=== PATIENT | female | born 1955 | race Caucasian/White ===

== ENCOUNTER 2017-10-11 06:41 | Outpatient (CLI) | payer OTHER ==
[~2017-10-11 06:41] MED LIST: ANTIVERT25 M1 PO; COZAAR100 MG; COZAAR100 MG PO; COZAAR25 MG PO; DECADRON P4 MG/ML-1M IH; FLONASE16 GM NS; GLUCOPHAGE XR500 MG; LIPOFLAVOVIT CA1 TAB PO; PRILOSEC20 MG; PRILOSEC40 MG PO; ROWASA 4 G4 GM/60 ML; SYNTHROID100 MCG; SYNTHROID100 MCG PO; SYNTHROID50 MCG PO; SYNTHROID88 MCG; SYNTHROID88 MCG PO; TORADOL60 MG IM; TRAMADOL HCL50 MG PO; TUSSIN CF COUG118 M1 PO; ZANTAC300 MG PO; ZOCOR5 MG PO
== END 2017-10-11 06:49 | disposition home or self-care (01) ==
LOC: LAB 06:41
DX: C53.9 Malignant neoplasm of cervix uteri, unspecified (principal); D50.9 Iron deficiency anemia, unspecified

== ENCOUNTER → 2017-11-12 | Outpatient (CLI) | payer OTHER | END | disposition home or self-care (01) | LOC: PPHC 10:32 | DX: Z76.0 Encounter for issue of repeat prescription (principal) ==

== ENCOUNTER → 2017-11-13 08:05 | Outpatient (CLI) | payer OTHER | END | disposition home or self-care (01) | LOC: LAB 08:05 | DX: C53.9 Malignant neoplasm of cervix uteri, unspecified (principal); D50.9 Iron deficiency anemia, unspecified ==

== ENCOUNTER → 2018-05-03 06:23 | Outpatient (CLI) | payer OTHER | END | disposition home or self-care (01) | LOC: LAB 06:23 | DX: I10 Essential (primary) hypertension (principal); R73.9 Hyperglycemia, unspecified; R53.1 Weakness ==

== ENCOUNTER 2018-07-07 12:28 | Outpatient (CLI) | payer OTHER | END 2018-07-07 12:31 | disposition home or self-care (01) | LOC: SONOGRAMA 12:28 | DX: Z12.31 Encounter for screening mammogram for malignant neoplasm of breast (principal); C53.9 Malignant neoplasm of cervix uteri, unspecified ==

== ENCOUNTER 2018-07-20 06:13 | Outpatient (CLI) | payer OTHER | END 2018-07-20 06:35 | disposition home or self-care (01) | LOC: LAB 06:13 | DX: C53.9 Malignant neoplasm of cervix uteri, unspecified (principal); D50.8 Other iron deficiency anemias ==

== ENCOUNTER 2018-08-22 23:32 | Emergency (ER) | payer OTHER ==
[~2018-08-22] VITALS: Ht 157.5 cm; Wt 81.6 kg
[2018-08-22] MEDS ORDERED: METFORMIN HYDRO25 GM (23:45)
== END 2018-08-23 09:12 | disposition home or self-care (01) ==
LOC: ER 23:32
DX: K29.70 Gastritis, unspecified, without bleeding (principal)

== ENCOUNTER 2018-09-07 12:37 | Emergency (ER) | payer OTHER ==
[~2018-09-07] VITALS: Ht 157.5 cm; Wt 86.2 kg
[~2018-09-07 12:37] MED LIST changes: +METFORMIN HYDRO25 GM
[2018-09-07] MEDS ORDERED: KETO10TA2 PO (14:01)
== END 2018-09-07 14:23 | disposition home or self-care (01) ==
LOC: ER 12:37
DX: M54.5 Low back pain (principal)

== ENCOUNTER → 2018-09-19 06:50 | Outpatient (CLI) | payer OTHER ==
[~2018-09-19 06:50] MED LIST changes: +KETO10TA2 PO
== END | disposition home or self-care (01) ==
LOC: LAB 06:50
DX: E03.8 Other specified hypothyroidism (principal)

== ENCOUNTER 2019-01-16 17:39 | Emergency (ER) | payer OTHER ==
[~2019-01-16] VITALS: Ht 157.5 cm; Wt 85.3 kg
[2019-01-16] MEDS ORDERED: ZANTAC150 M3 (18:24)
== END 2019-01-16 22:18 | disposition home or self-care (01) ==
LOC: ER 17:39
DX: M25.511 Pain in right shoulder (principal)

== ENCOUNTER → 2019-04-06 06:25 | Outpatient (CLI) | payer OTHER ==
[~2019-04-06 06:25] MED LIST changes: +ZANTAC150 M3
== END | disposition home or self-care (01) ==
LOC: LAB 06:25
DX: E03.8 Other specified hypothyroidism (principal); E78.00 Pure hypercholesterolemia, unspecified; E11.65 Type 2 diabetes mellitus with hyperglycemia

== ENCOUNTER 2019-04-24 11:07 | Outpatient (CLI) | payer OTHER | END 2019-04-24 11:09 | disposition home or self-care (01) | LOC: RAD 11:07 | DX: R07.89 Other chest pain (principal); R07.81 Pleurodynia ==

== ENCOUNTER 2019-04-27 06:42 | Outpatient (CLI) | payer OTHER | END 2019-04-27 08:32 | disposition home or self-care (01) | LOC: LAB 06:42 | DX: C53.9 Malignant neoplasm of cervix uteri, unspecified (principal); D50.8 Other iron deficiency anemias ==

== ENCOUNTER → 2019-07-17 | Outpatient (CLI) | payer OTHER | END | disposition home or self-care (01) | LOC: MAMO-SONO 10:15 | DX: N64.4 Mastodynia (principal); Z12.31 Encounter for screening mammogram for malignant neoplasm of breast; Z87.898 Personal history of other specified conditions ==

== ENCOUNTER 2019-08-24 04:43 | Emergency (ER) | payer OTHER ==
[~2019-08-24] VITALS: Ht 157.5 cm; Wt 84.8 kg
[2019-08-24] MEDS ORDERED: KETO10TA2 PO ×2 (06:59→07:00)
== END 2019-08-24 08:40 | disposition home or self-care (01) ==
LOC: ER 04:43
DX: M62.830 Muscle spasm of back (principal)

== ENCOUNTER → 2019-09-25 06:32 | Outpatient (CLI) | payer OTHER | END | disposition home or self-care (01) | LOC: LAB 06:32 | DX: E78.49 Other hyperlipidemia (principal); E03.8 Other specified hypothyroidism; Z00.00 Encounter for general adult medical examination without abnormal findings; E55.9 Vitamin D deficiency, unspecified; E11.9 Type 2 diabetes mellitus without complications; N39.0 Urinary tract infection, site not specified ==

== ENCOUNTER 2020-02-06 07:10 | Emergency (ER) | payer OTHER ==
[~2020-02-06] VITALS: Ht 157.5 cm; Wt 83.9 kg
[2020-02-06] MEDS ORDERED: METFORMIN HCL850 M1 PO (07:29)
[2020-02-06] MEDS ORDERED: LEVAQUIN500 MG PO (13:34)
[2020-02-06] MEDS ORDERED: PEPCID AC20 MG PO (13:34)
[2020-02-06] MEDS ORDERED: KETO10TA2 PO (13:34)
[2020-02-06] MEDS ORDERED: LEVSIN/SL0.125 MG SL (13:34)
== END 2020-02-06 14:11 | disposition home or self-care (01) ==
LOC: ER 07:10
DX: K80.20 Calculus of gallbladder without cholecystitis without obstruction (principal)

== ENCOUNTER 2020-08-01 06:14 | Outpatient (CLI) | payer OTHER ==
[~2020-08-01 06:14] MED LIST changes: +LEVAQUIN500 MG PO; +LEVSIN/SL0.125 MG SL; +METFORMIN HCL850 M1 PO; +PEPCID AC20 MG PO
== END 2020-08-01 06:23 | disposition home or self-care (01) ==
LOC: LAB 06:14
PROVIDERS: ATTEND Internal Medicine Endocrinology, Diabetes & Metabolism
DX: E78.89 Other lipoprotein metabolism disorders (principal); E06.3 Autoimmune thyroiditis; E11.65 Type 2 diabetes mellitus with hyperglycemia

== ENCOUNTER 2020-09-10 14:23 | Emergency (ER) | payer OTHER ==
[~2020-09-10] VITALS: Ht 157.5 cm; Wt 86.2 kg
== END 2020-09-10 19:20 | disposition home or self-care (01) ==
LOC: ER 14:23
DX: M25.561 Pain in right knee (principal)

== ENCOUNTER 2020-12-06 07:15 | Outpatient (CLI) | payer OTHER | END 2020-12-06 07:22 | disposition home or self-care (01) | LOC: MAMO-SONO 07:15 | PROVIDERS: ATTEND Internal Medicine Endocrinology, Diabetes & Metabolism | DX: K76.0 Fatty (change of) liver, not elsewhere classified (principal); Z01.411 Encounter for gynecological examination (general) (routine) with abnormal findings; Z12.31 Encounter for screening mammogram for malignant neoplasm of breast ==

== ENCOUNTER 2020-12-10 06:33 | Outpatient (CLI) | payer OTHER | END 2020-12-10 06:37 | disposition home or self-care (01) | LOC: LAB 06:33 | PROVIDERS: ATTEND Internal Medicine Endocrinology, Diabetes & Metabolism | DX: E06.3 Autoimmune thyroiditis (principal); E11.65 Type 2 diabetes mellitus with hyperglycemia ==

== ENCOUNTER 2020-12-10 07:11 | Outpatient (CLI) | payer OTHER | END 2020-12-10 07:21 | disposition home or self-care (01) | LOC: MAMO-SONO 07:11 | DX: Z12.31 Encounter for screening mammogram for malignant neoplasm of breast (principal); Z01.419 Encounter for gynecological examination (general) (routine) without abnormal findings ==

== ENCOUNTER 2020-12-24 06:23 | Outpatient (CLI) | payer OTHER | END 2020-12-24 06:26 | disposition home or self-care (01) | LOC: LAB 06:23 | PROVIDERS: ATTEND Internal Medicine Gastroenterology | DX: D50.8 Other iron deficiency anemias (principal); U07.1 COVID-19 ==

== ENCOUNTER 2021-02-07 06:31 | Outpatient (CLI) | payer OTHER | END 2021-02-07 06:32 | disposition home or self-care (01) | LOC: LAB 06:31 | PROVIDERS: ATTEND General Practice | DX: D50.8 Other iron deficiency anemias (principal); N39.0 Urinary tract infection, site not specified; I10 Essential (primary) hypertension; E03.8 Other specified hypothyroidism; E78.2 Mixed hyperlipidemia; E11.69 Type 2 diabetes mellitus with other specified complication; E55.9 Vitamin D deficiency, unspecified; Z12.11 Encounter for screening for malignant neoplasm of colon ==

== ENCOUNTER 2021-02-07 07:43 | Outpatient (CLI) | payer OTHER | END 2021-02-07 07:52 | disposition home or self-care (01) | LOC: RAD 07:43 | PROVIDERS: ATTEND General Practice | DX: J44.9 Chronic obstructive pulmonary disease, unspecified (principal); I70.0 Atherosclerosis of aorta; I51.7 Cardiomegaly ==

== ENCOUNTER → 2021-04-17 06:19 | Outpatient (CLI) | payer OTHER | END | disposition home or self-care (01) | LOC: LAB 06:19 | PROVIDERS: ATTEND Internal Medicine Endocrinology, Diabetes & Metabolism | DX: E11.65 Type 2 diabetes mellitus with hyperglycemia (principal); E78.00 Pure hypercholesterolemia, unspecified; N39.0 Urinary tract infection, site not specified; P12.89 Other birth injuries to scalp ==

== ENCOUNTER 2021-05-14 06:25 | Emergency (ER) | payer OTHER ==
[~2021-05-14] VITALS: Ht 157.5 cm; Wt 113.4 kg
[2021-05-14] MEDS ORDERED: MECLIZINE HCL25 MG PO (13:11)
== END 2021-05-14 13:40 ==
LOC: ER 06:25
DX: R42 Dizziness and giddiness (principal)

== ENCOUNTER 2021-06-13 06:15 | Outpatient (CLI) | payer OTHER ==
[~2021-06-13 06:15] MED LIST changes: +MECLIZINE HCL25 MG PO
== END 2021-06-13 06:16 | disposition home or self-care (01) ==
LOC: LAB 06:15
PROVIDERS: ATTEND Internal Medicine
DX: C53.8 Malignant neoplasm of overlapping sites of cervix uteri (principal); D50.8 Other iron deficiency anemias

== ENCOUNTER 2021-07-23 19:55 | Emergency (ER) | payer OTHER ==
[~2021-07-23] VITALS: Ht 157.5 cm; Wt 86.2 kg
== END 2021-07-23 22:45 | disposition home or self-care (01) ==
LOC: ER 19:55
DX: K29.70 Gastritis, unspecified, without bleeding (principal)

== ENCOUNTER → 2021-08-15 06:31 | Outpatient (CLI) | payer OTHER | END | disposition home or self-care (01) | LOC: LAB 06:31 | PROVIDERS: ATTEND General Practice | DX: D50.8 Other iron deficiency anemias (principal); N39.8 Other specified disorders of urinary system; I11.9 Hypertensive heart disease without heart failure; I10 Essential (primary) hypertension; E11.69 Type 2 diabetes mellitus with other specified complication; E78.2 Mixed hyperlipidemia; Z12.11 Encounter for screening for malignant neoplasm of colon ==

== ENCOUNTER → 2021-09-25 06:38 | Outpatient (CLI) | payer OTHER | END | disposition home or self-care (01) | LOC: LAB 06:38 | DX: Z08 Encounter for follow-up examination after completed treatment for malignant neoplasm (principal); E11.65 Type 2 diabetes mellitus with hyperglycemia; E78.00 Pure hypercholesterolemia, unspecified; E03.8 Other specified hypothyroidism ==

== ENCOUNTER 2021-11-10 06:30 | Outpatient (CLI) | payer OTHER | END 2021-11-10 06:31 | disposition home or self-care (01) | LOC: LAB 06:30 | DX: E03.9 Hypothyroidism, unspecified (principal); N39.0 Urinary tract infection, site not specified; E11.65 Type 2 diabetes mellitus with hyperglycemia; Z12.11 Encounter for screening for malignant neoplasm of colon ==

== ENCOUNTER 2022-01-20 10:57 | Emergency (ER) | payer OTHER ==
[~2022-01-20] VITALS: Ht 157.5 cm; Wt 93.0 kg
[2022-01-20] MEDS ORDERED: ACTOS30 MG PO (11:19)
== END 2022-01-20 21:00 | disposition home or self-care (01) ==
LOC: ER 10:57
DX: K80.20 Calculus of gallbladder without cholecystitis without obstruction (principal); E11.9 Type 2 diabetes mellitus without complications; I10 Essential (primary) hypertension; Z88.8 Allergy status to other drugs, medicaments and biological substances

== ENCOUNTER 2022-01-28 06:07 | Outpatient (CLI) | payer OTHER ==
[~2022-01-28 06:07] MED LIST changes: +ACTOS30 MG PO
== END 2022-01-28 06:08 | disposition home or self-care (01) ==
LOC: LAB 06:07
PROVIDERS: ATTEND Internal Medicine
DX: C53.9 Malignant neoplasm of cervix uteri, unspecified (principal); D50.9 Iron deficiency anemia, unspecified

== ENCOUNTER → 2022-02-16 06:15 | Outpatient (CLI) | payer OTHER | END | disposition home or self-care (01) | LOC: LAB 06:15 | PROVIDERS: ATTEND Internal Medicine Endocrinology, Diabetes & Metabolism | DX: E78.00 Pure hypercholesterolemia, unspecified (principal); E11.65 Type 2 diabetes mellitus with hyperglycemia; E03.8 Other specified hypothyroidism ==

== ENCOUNTER 2022-02-17 10:09 | Outpatient (CLI) | payer OTHER | END 2022-02-17 10:15 | disposition home or self-care (01) | LOC: MAMO-SONO 10:09 | DX: Z12.31 Encounter for screening mammogram for malignant neoplasm of breast (principal) ==

== ENCOUNTER 2022-03-06 06:00 | Day surgery (SDC) | payer OTHER ==
[~2022-03-06] VITALS: Ht 157.5 cm; Wt 90.7 kg
[~2022-03-06 06:00] MED LIST changes: +SYNTHROID112 MCG PO
== END 2022-03-06 12:00 | disposition home or self-care (01) ==
LOC: CIR.AMB 06:00
PROVIDERS: ATTEND Surgery
DX: K80.10 Calculus of gallbladder with chronic cholecystitis without obstruction (principal); Z20.822 Contact with and (suspected) exposure to COVID-19; Z88.8 Allergy status to other drugs, medicaments and biological substances; I10 Essential (primary) hypertension; Z86.16 Personal history of COVID-19; Z87.891 Personal history of nicotine dependence; Z85.42 Personal history of malignant neoplasm of other parts of uterus; Z92.21 Personal history of antineoplastic chemotherapy; E66.9 Obesity, unspecified

== ENCOUNTER 2022-06-29 06:28 | Outpatient (CLI) | payer OTHER | END 2022-06-29 06:29 | disposition home or self-care (01) | LOC: LAB 06:28 | DX: E78.9 Disorder of lipoprotein metabolism, unspecified (principal); E11.65 Type 2 diabetes mellitus with hyperglycemia; E06.3 Autoimmune thyroiditis; N39.0 Urinary tract infection, site not specified; E78.00 Pure hypercholesterolemia, unspecified ==

== ENCOUNTER 2023-01-26 06:16 | Outpatient (CLI) | payer OTHER | END 2023-01-26 07:57 | disposition home or self-care (01) | LOC: LAB 06:16 | DX: C53.9 Malignant neoplasm of cervix uteri, unspecified (principal); D50.9 Iron deficiency anemia, unspecified; E78.00 Pure hypercholesterolemia, unspecified; E11.65 Type 2 diabetes mellitus with hyperglycemia; E03.8 Other specified hypothyroidism ==

== ENCOUNTER 2023-02-08 05:39 | Emergency (ER) | payer OTHER ==
[~2023-02-08] VITALS: Ht 157.5 cm; Wt 89.8 kg
[2023-02-08] MEDS ORDERED: DICLOFENAC SODI75 MG PO (07:51)
== END 2023-02-08 07:55 ==
LOC: ER 05:39
DX: M62.838 Other muscle spasm (principal); I10 Essential (primary) hypertension; E11.9 Type 2 diabetes mellitus without complications; E03.8 Other specified hypothyroidism; Z88.8 Allergy status to other drugs, medicaments and biological substances

== ENCOUNTER → 2023-02-26 10:23 | Outpatient (CLI) | payer OTHER ==
[~2023-02-26 10:23] MED LIST changes: +DICLOFENAC SODI75 MG PO
== END | disposition home or self-care (01) ==
LOC: LAB 10:23
DX: R73.01 Impaired fasting glucose (principal); Z12.11 Encounter for screening for malignant neoplasm of colon

== ENCOUNTER 2023-05-08 10:16 | Outpatient (CLI) | payer OTHER ==
[2023-05-08 11:18] LABS: HEMATOCRIT 35.7 % (36.0-45.00); HEMOGLOBIN 11.8 g/dL (12.0-15.00); MEAN CELL VOLUME 82.5 fL (80.00-100.00); MEAN CORPUSCULAR HEMOGLOBIN 27.3 pg (27.00-32.0); MEAN CORPUSCULAR HGB CONC 33.1 g/dl (32.0-36.0); PLATELET COUNT 221 K/uL (150-450); RED BLOOD COUNT 4.33 M/uL (4.00-6.00); RED CELL DISTRIBUTION WIDTH 16.1 % (11.5-14.5)
== END 2023-05-08 10:33 | disposition home or self-care (01) ==
LOC: LAB 10:16
DX: E11.65 Type 2 diabetes mellitus with hyperglycemia (principal); D50.9 Iron deficiency anemia, unspecified

== ENCOUNTER 2023-05-31 11:52 | Outpatient (CLI) | payer OTHER ==
[2023-05-31 12:57] LABS: HEMOGLOBIN 11.6 g/dL (12.0-15.00); MEAN CELL VOLUME 81.6 fL (80.00-100.00); MEAN CORPUSCULAR HEMOGLOBIN 27.7 pg (27.00-32.0); PLATELET COUNT 241 K/uL (150-450); RED BLOOD COUNT 4.17 M/uL (4.00-6.00); RED CELL DISTRIBUTION WIDTH 16.8 % (11.5-14.5)
[2023-05-31 13:46] LABS: MYCOPLASMA PNEUMONIAE IGM NON REACTIVE (NO REACTIVE)
== END 2023-05-31 11:59 | disposition home or self-care (01) ==
LOC: LAB 11:52
PROVIDERS: ATTEND General Practice
DX: J11.1 Influenza due to unidentified influenza virus with other respiratory manifestations (principal); D50.9 Iron deficiency anemia, unspecified; Z20.822 Contact with and (suspected) exposure to COVID-19; Z88.8 Allergy status to other drugs, medicaments and biological substances

== ENCOUNTER 2023-07-06 13:10 | Outpatient (CLI) | payer OTHER | END 2023-07-06 13:12 | disposition home or self-care (01) | LOC: MAMO-SONO 13:10 | PROVIDERS: ATTEND General Practice | DX: Z12.39 Encounter for other screening for malignant neoplasm of breast (principal); Z12.31 Encounter for screening mammogram for malignant neoplasm of breast ==

== ENCOUNTER 2023-07-17 10:39 | Outpatient (CLI) | payer OTHER ==
[2023-07-17 11:21] LABS: HEMATOCRIT 35.3 % (36.0-45.00); HEMOGLOBIN 11.9 g/dL (12.0-15.00); MEAN CELL VOLUME 81.9 fL (80.00-100.00); MEAN CORPUSCULAR HEMOGLOBIN 27.6 pg (27.00-32.0); MEAN CORPUSCULAR HGB CONC 33.7 g/dl (32.0-36.0); PLATELET COUNT 273 K/uL (150-450); RED BLOOD COUNT 4.31 M/uL (4.00-6.00); RED CELL DISTRIBUTION WIDTH 15.4 % (11.5-14.5)
[2023-07-17 11:59] LABS: ALBUMIN 3.7 gm/dL (3.4-5.0); BILIRUBIN TOTAL 0.59 mg/dL (0.3-1.2); CALCIUM 9.7 mg/dL (8.5-10.1); CREATININE SERUM 0.82 mg/dL (0.55-1.02); GFR 69.53; GLOBULINA 3.9 G/DL (2.4-3.5); POTASSIUM 4.03 mEq/L (3.5-5.1); TOTAL PROTEIN 7.6 gm/dL (6.4-8.2)
== END 2023-07-17 10:43 | disposition home or self-care (01) ==
LOC: LAB 10:39
DX: D64.9 Anemia, unspecified (principal)

== ENCOUNTER 2023-07-24 10:00 | Outpatient (CLI) | payer OTHER ==
[2023-07-24 10:45] LABS: HEMATOCRIT 34.4 % (36.0-45.00); HEMOGLOBIN 11.4 g/dL (12.0-15.00); MEAN CELL VOLUME 82.3 fL (80.00-100.00); MEAN CORPUSCULAR HEMOGLOBIN 27.3 pg (27.00-32.0); MEAN CORPUSCULAR HGB CONC 33.2 g/dl (32.0-36.0); PLATELET COUNT 234 K/uL (150-450); RED BLOOD COUNT 4.18 M/uL (4.00-6.00); RED CELL DISTRIBUTION WIDTH 15.4 % (11.5-14.5)
[2023-07-24 10:58] LABS: ALBUMIN 3.6 gm/dL (3.4-5.0); BILIRUBIN TOTAL 0.61 mg/dL (0.3-1.2); CALCIUM 9.3 mg/dL (8.5-10.1); CREATININE SERUM 0.78 mg/dL (0.55-1.02); GFR 73.66; GLOBULINA 3.9 G/DL (2.4-3.5); POTASSIUM 4.34 mEq/L (3.5-5.1); TOTAL PROTEIN 7.5 gm/dL (6.4-8.2)
== END 2023-07-24 10:01 | disposition home or self-care (01) ==
LOC: LAB 10:00
PROVIDERS: ATTEND Internal Medicine
DX: C53.9 Malignant neoplasm of cervix uteri, unspecified (principal); D50.9 Iron deficiency anemia, unspecified

== ENCOUNTER 2023-09-18 10:38 | Outpatient (CLI) | payer OTHER ==
[2023-09-18 12:26] LABS: PH,URINE 6.5 (5.0-8.0); URINE APPEARANCE Clear; URINE BILIRRUBIN Negative (NEGATIVE); URINE BLOOD Negative; URINE COLOR Yellow; URINE GLUCOSE Negative (NEGATIVE); URINE LEUKOCYTE Trace; URINE NITRATE Negative; URINE PROTEIN Negative (NEGATIVE); URINE UROBILINOGEN 0.2 E.U./dl
[2023-09-18 12:28] LABS: URINE BACTERIA 8.8 uL (0.0-1933); URINE EPITHELIAL CELLS 3.8 uL (0.0-38.8); URINE RBC 3.5 uL (0.0-20.8)
[2023-09-18 12:42] LABS: CHOL HDL RATIO 2.9 (0-5.0); TSH 3.54 uIU/mL (0.358-3.74)
== END 2023-09-18 15:00 | disposition home or self-care (01) ==
LOC: LAB 10:38
PROVIDERS: ATTEND General Practice
DX: R73.01 Impaired fasting glucose (principal); N39.0 Urinary tract infection, site not specified; E78.2 Mixed hyperlipidemia; E03.9 Hypothyroidism, unspecified

== ENCOUNTER 2023-10-09 09:49 | Outpatient (CLI) | payer OTHER | END 2023-10-09 09:52 | disposition home or self-care (01) | LOC: RAD 09:49 | DX: M25.561 Pain in right knee (principal); M25.562 Pain in left knee ==

== ENCOUNTER 2024-03-04 10:08 | Outpatient (CLI) | payer OTHER ==
[2024-03-04 11:19] LABS: HEMATOCRIT 30.5 % (36.0-45.00); HEMOGLOBIN 10.1 g/dL (12.0-15.00); MEAN CELL VOLUME 72.2 fL (80.00-100.00); MEAN CORPUSCULAR HEMOGLOBIN 23.9 pg (27.00-32.0); MEAN CORPUSCULAR HGB CONC 33.1 g/dl (32.0-36.0); PLATELET COUNT 300 K/uL (150-450); RED BLOOD COUNT 4.22 M/uL (4.00-6.00); RED CELL DISTRIBUTION WIDTH 18.5 % (11.5-14.5)
[2024-03-04 11:45] LABS: ALBUMIN 3.6 gm/dL (3.4-5.0); BILIRUBIN TOTAL 0.5 mg/dL (0.3-1.2); CALCIUM 9.3 mg/dL (8.5-10.1); CREATININE SERUM 0.86 mg/dL (0.55-1.02); GFR 65.62; POTASSIUM 4.49 mEq/L (3.5-5.1); TOTAL PROTEIN 7.6 gm/dL (6.4-8.2)
== END 2024-03-04 10:11 | disposition home or self-care (01) ==
LOC: LAB 10:08
PROVIDERS: ATTEND Internal Medicine
DX: C53.9 Malignant neoplasm of cervix uteri, unspecified (principal); D50.9 Iron deficiency anemia, unspecified

== ENCOUNTER 2024-04-01 00:17 | Emergency (ER) | payer OTHER ==
[~2024-04-01] VITALS: Ht 157.5 cm; Wt 93.4 kg
[2024-04-01] MEDS ORDERED: MECLIZINE HCL 25 MG TABLET PO STA (02:10)
[2024-04-01] MEDS ORDERED: METOCLOPRAMIDE HCL 5 MG/ML VIAL IM STA (02:10)
[2024-04-01] MEDS ORDERED: METOCLOPRAMIDE HCL 5 MG/ML VIAL ONE (02:15)
[2024-04-01] MEDS ORDERED: MECLIZINE HCL 25 MG TABLET PO ONE (02:15)
== END 2024-04-01 03:24 | disposition home or self-care (01) ==
LOC: ER 00:18
DX: H81.10 Benign paroxysmal vertigo, unspecified ear (principal); Z88.8 Allergy status to other drugs, medicaments and biological substances; I10 Essential (primary) hypertension

== ENCOUNTER 2024-04-08 08:14 | Outpatient (CLI) | payer OTHER ==
[2024-04-08 10:46] LABS: URINE APPEARANCE Clear; URINE BILIRRUBIN Negative (NEGATIVE); URINE BLOOD Negative; URINE COLOR Dark Yellow; URINE GLUCOSE Negative (NEGATIVE); URINE KETONE Trace (NEGATIVE); URINE LEUKOCYTE Small; URINE NITRATE Negative; URINE PROTEIN 30 (NEGATIVE); URINE UROBILINOGEN 0.2 E.U./dl
[2024-04-08 10:52] LABS: URINE BACTERIA 32.7 uL (0.0-1933); URINE CAST 1.67 uL (0.0-1.40); URINE WBC 138.2 uL (0.0-23.2)
== END 2024-04-08 08:15 | disposition home or self-care (01) ==
LOC: LAB 08:14
PROVIDERS: ATTEND General Practice
DX: E11.65 Type 2 diabetes mellitus with hyperglycemia (principal); N39.0 Urinary tract infection, site not specified

== ENCOUNTER 2024-06-17 11:12 | Outpatient (CLI) | payer OTHER ==
[~2024-06-17 11:12] MED LIST changes: +DICLOFENAC SODI50 MG PO
[2024-06-17 12:12] LABS: URINE APPEARANCE Clear; URINE BILIRRUBIN Negative (NEGATIVE); URINE BLOOD Negative; URINE COLOR Yellow; URINE GLUCOSE Negative (NEGATIVE); URINE KETONE Negative (NEGATIVE); URINE LEUKOCYTE Small; URINE NITRATE Negative; URINE PROTEIN 30 (NEGATIVE); URINE UROBILINOGEN 0.2 E.U./dl
[2024-06-17 12:16] LABS: URINE BACTERIA 37.7 uL (0.0-1933); URINE EPITHELIAL CELLS 11.4 uL (0.0-38.8); URINE RBC 5.9 uL (0.0-20.8); URINE WBC 56.2 uL (0.0-23.2)
[2024-06-17 12:20] LABS: URINE CAST 1.37 uL (0.0-1.40)
[2024-06-17 12:46] LABS: ALBUMIN 3.6 gm/dL (3.4-5.0); BILIRUBIN TOTAL 0.43 mg/dL (0.3-1.2); CALCIUM 9.4 mg/dL (8.5-10.1); CHOL HDL RATIO 2.7 (0-5.0); CREATININE SERUM 0.84 mg/dL (0.55-1.02); GFR 67.42; POTASSIUM 4.59 mEq/L (3.5-5.1); T4 FREE 1.14 NG/ML (0.76-1.46); TOTAL PROTEIN 7.6 gm/dL (6.4-8.2); TSH 2.43 uIU/mL (0.358-3.74)
== END 2024-06-17 11:21 | disposition home or self-care (01) ==
LOC: LAB 11:12
PROVIDERS: ATTEND Internal Medicine Endocrinology, Diabetes & Metabolism
DX: E03.8 Other specified hypothyroidism (principal); E78.00 Pure hypercholesterolemia, unspecified

== ENCOUNTER 2024-06-28 21:49 | Emergency (ER) | payer OTHER ==
[~2024-06-28] VITALS: Ht 157.5 cm; Wt 89.8 kg
[2024-06-28 22:03] VITALS: BP 130/81; O2SAT 100
[2024-06-28] MEDS ORDERED: DEXAMETHASONE SODIUM PHOSPHATE 4 MG/ML VIAL IM ONE (22:30)
[2024-06-28] MEDS ORDERED: KETOROLAC TROMETHAMINE 60 MG VIAL IM ONE (22:30)
== END 2024-06-28 22:48 | disposition home or self-care (01) ==
LOC: ER 21:51
DX: M54.89 Other dorsalgia (principal); R07.89 Other chest pain; E11.9 Type 2 diabetes mellitus without complications; I10 Essential (primary) hypertension; E03.9 Hypothyroidism, unspecified; Z88.8 Allergy status to other drugs, medicaments and biological substances

== ENCOUNTER 2024-07-11 12:55 | Outpatient (CLI) | payer OTHER | END 2024-07-11 13:06 | disposition home or self-care (01) | LOC: MAMO-SONO 12:55 | DX: Z12.31 Encounter for screening mammogram for malignant neoplasm of breast (principal) ==

== ENCOUNTER 2024-08-19 10:12 | Outpatient (CLI) | payer OTHER ==
[2024-08-19 11:18] LABS: URINE APPEARANCE Clear; URINE BILIRRUBIN Negative (NEGATIVE); URINE BLOOD Negative; URINE COLOR Yellow; URINE GLUCOSE Negative (NEGATIVE); URINE KETONE Negative (NEGATIVE); URINE LEUKOCYTE Trace; URINE NITRATE Negative; URINE PROTEIN Negative (NEGATIVE); URINE UROBILINOGEN 0.2 E.U./dl
[2024-08-19 11:19] LABS: URINE BACTERIA 28.1 uL (0.0-1933); URINE RBC 3.5 uL (0.0-20.8); URINE WBC 17.7 uL (0.0-23.2)
[2024-08-19 11:26] LABS: URINE CAST 0.14 uL (0.0-1.40)
[2024-08-19 11:36] LABS: ob POSITIVE (NEGATIVE)
[2024-08-19 11:56] LABS: ALBUMIN 3.4 gm/dL (3.4-5.0); BILIRUBIN TOTAL 0.48 mg/dL (0.3-1.2); CALCIUM 9.5 mg/dL (8.5-10.1); CHOL HDL RATIO 2.4 (0-5.0); CREATININE SERUM 0.98 mg/dL (0.55-1.02); GFR 56.44; POTASSIUM 4.45 mEq/L (3.5-5.1); TOTAL PROTEIN 7.4 gm/dL (6.4-8.2); TSH 3.47 uIU/mL (0.358-3.74)
[2024-08-19 12:31] LABS: HEMATOCRIT 28.2 % (36.0-45.00); MEAN CELL VOLUME 71.8 fL (80.00-100.00); MEAN CORPUSCULAR HEMOGLOBIN 23.6 pg (27.00-32.0); MEAN CORPUSCULAR HGB CONC 32.9 g/dl (32.0-36.0); PLATELET COUNT 300 K/uL (150-450); RED BLOOD COUNT 3.93 M/uL (4.00-6.00); RED CELL DISTRIBUTION WIDTH 19.4 % (11.5-14.5)
[2024-08-19 12:32] LABS: HEMOGLOBIN 9.3 g/dL (12.0-15.00)
== END 2024-08-19 10:16 | disposition home or self-care (01) ==
LOC: LAB 10:12
PROVIDERS: ATTEND General Practice
DX: D50.9 Iron deficiency anemia, unspecified (principal); Z12.11 Encounter for screening for malignant neoplasm of colon; E78.2 Mixed hyperlipidemia; E11.65 Type 2 diabetes mellitus with hyperglycemia; I10 Essential (primary) hypertension; I11.9 Hypertensive heart disease without heart failure; E03.8 Other specified hypothyroidism; N39.0 Urinary tract infection, site not specified; I12.9 Hypertensive chronic kidney disease with stage 1 through stage 4 chronic kidney disease, or unspecified chronic kidney disease

== ENCOUNTER → 2024-10-14 10:10 | Outpatient (CLI) | payer OTHER ==
[2024-10-14 11:04] LABS: PH,URINE 6.5 (5.0-8.0); URINE APPEARANCE Clear; URINE BILIRRUBIN Negative (NEGATIVE); URINE BLOOD Negative; URINE COLOR Yellow; URINE GLUCOSE Negative (NEGATIVE); URINE KETONE Negative (NEGATIVE); URINE LEUKOCYTE Trace; URINE NITRATE Negative; URINE PROTEIN Negative (NEGATIVE); URINE UROBILINOGEN 0.2 E.U./dl
[2024-10-14 11:09] LABS: URINE BACTERIA 8.5 uL (0.0-1933); URINE RBC 8.8 uL (0.0-20.8); URINE WBC 54.2 uL (0.0-23.2)
[2024-10-14 11:25] LABS: ALBUMIN 3.7 gm/dL (3.4-5.0); BILIRUBIN TOTAL 0.45 mg/dL (0.3-1.2); CALCIUM 9.1 mg/dL (8.5-10.1); CREATININE SERUM 0.84 mg/dL (0.55-1.02); GFR 67.22; GLOBULINA 3.9 G/DL (2.4-3.5); POTASSIUM 4.51 mEq/L (3.5-5.1); T4 FREE 1.17 NG/ML (0.76-1.46); TOTAL PROTEIN 7.6 gm/dL (6.4-8.2); TSH 1.71 uIU/mL (0.358-3.74)
== END | disposition home or self-care (01) ==
LOC: LAB 10:10
PROVIDERS: ATTEND Internal Medicine Endocrinology, Diabetes & Metabolism
DX: E11.65 Type 2 diabetes mellitus with hyperglycemia (principal); E78.5 Hyperlipidemia, unspecified; E03.8 Other specified hypothyroidism

== ENCOUNTER → 2024-10-25 | Emergency (ER) | payer OTHER ==
[~2024-10-25] VITALS: Ht 157.5 cm; Wt 83.9 kg
[~2024-10-25] MED LIST changes: +ACTOS15 MG
[2024-10-25 02:49] VITALS: BP 161/76; O2SAT 99
== END | disposition left against medical advice (07) ==
LOC: ER 02:39
DX: Z53.21 Procedure and treatment not carried out due to patient leaving prior to being seen by health care provider (principal)

== ENCOUNTER → 2024-10-28 09:39 | Outpatient (CLI) | payer OTHER ==
[2024-10-28 11:09] LABS: HEMATOCRIT 26.7 % (36.0-45.00); HEMOGLOBIN 8.6 g/dL (12.0-15.00); MEAN CELL VOLUME 69.5 fL (80.00-100.00); MEAN CORPUSCULAR HEMOGLOBIN 22.3 pg (27.00-32.0); MEAN CORPUSCULAR HGB CONC 32.3 g/dl (32.0-36.0); PLATELET COUNT 281 K/uL (150-450); RED BLOOD COUNT 3.85 M/uL (4.00-6.00); RED CELL DISTRIBUTION WIDTH 17.6 % (11.5-14.5)
[2024-10-28 11:26] LABS: ALBUMIN 3.4 gm/dL (3.4-5.0); BILIRUBIN TOTAL 0.52 mg/dL (0.3-1.2); CALCIUM 8.8 mg/dL (8.5-10.1); CREATININE SERUM 0.85 mg/dL (0.55-1.02); GFR 66.31; GLOBULINA 3.9 G/DL (2.4-3.5); POTASSIUM 4.01 mEq/L (3.5-5.1); TOTAL PROTEIN 7.3 gm/dL (6.4-8.2)
== END | disposition home or self-care (01) ==
LOC: LAB 09:39
DX: C53.9 Malignant neoplasm of cervix uteri, unspecified (principal); D50.9 Iron deficiency anemia, unspecified

== ENCOUNTER 2024-11-30 10:33 | Outpatient (CLI) | payer OTHER ==
[~2024-11-30 10:33] MED LIST changes: +DICLOFENAC POTA50 MG PO
[2024-11-30 11:38] LABS: HEMATOCRIT 25.5 % (36.0-45.00); MEAN CORPUSCULAR HGB CONC 32.1 g/dl (32.0-36.0); PLATELET COUNT 313 K/uL (150-450); RED BLOOD COUNT 3.74 M/uL (4.00-6.00); RED CELL DISTRIBUTION WIDTH 18.4 % (11.5-14.5)
[2024-11-30 11:57] LABS: HEMOGLOBIN 8.2 g/dL (12.0-15.00); MEAN CELL VOLUME 68.2 fL (80.00-100.00); MEAN CORPUSCULAR HEMOGLOBIN 21.9 pg (27.00-32.0)
[2024-11-30 12:24] LABS: CHOL HDL RATIO 1.9 (0-5.0)
== END 2024-11-30 10:48 | disposition home or self-care (01) ==
LOC: LAB 10:33
DX: D50.9 Iron deficiency anemia, unspecified (principal); E78.2 Mixed hyperlipidemia; K70.0 Alcoholic fatty liver; E11.65 Type 2 diabetes mellitus with hyperglycemia

== ENCOUNTER 2024-12-03 12:34 | Emergency (ER) | payer OTHER ==
[~2024-12-03] VITALS: Ht 157.5 cm; Wt 81.6 kg
[2024-12-03 14:08] LABS: HEMATOCRIT 26.9 % (36.0-45.00); MEAN CORPUSCULAR HGB CONC 32.1 g/dl (32.0-36.0); PLATELET COUNT 333 K/uL (150-450); RED BLOOD COUNT 4.03 M/uL (4.00-6.00); RED CELL DISTRIBUTION WIDTH 18.8 % (11.5-14.5)
[2024-12-03 14:13] LABS: HEMOGLOBIN 8.7 g/dL (12.0-15.00); MEAN CELL VOLUME 66.9 fL (80.00-100.00); MEAN CORPUSCULAR HEMOGLOBIN 21.5 pg (27.00-32.0)
== END 2024-12-03 15:01 | disposition home or self-care (01) ==
LOC: ER 12:34
PROVIDERS: Emergency Medicine
DX: D64.9 Anemia, unspecified (principal); R42 Dizziness and giddiness; E11.9 Type 2 diabetes mellitus without complications; I10 Essential (primary) hypertension; E03.9 Hypothyroidism, unspecified; Z88.8 Allergy status to other drugs, medicaments and biological substances; Z85.41 Personal history of malignant neoplasm of cervix uteri

== ENCOUNTER → 2024-12-07 06:31 | Outpatient (CLI) | payer OTHER ==
[2024-12-07 07:03] LABS: HEMATOCRIT 25.7 % (36.0-45.00); HEMOGLOBIN 8.4 g/dL (12.0-15.00); MEAN CELL VOLUME 68.3 fL (80.00-100.00); MEAN CORPUSCULAR HEMOGLOBIN 22.2 pg (27.00-32.0); MEAN CORPUSCULAR HGB CONC 32.5 g/dl (32.0-36.0); PLATELET COUNT 336 K/uL (150-450); RED BLOOD COUNT 3.77 M/uL (4.00-6.00)
[2024-12-07 12:32] LABS: FERRITIN 5.2 NG/ML (8-252)
[2024-12-07 12:51] LABS: TSH 3.56 uIU/mL (0.358-3.74)
== END | disposition home or self-care (01) ==
LOC: LAB 06:31
DX: C53.9 Malignant neoplasm of cervix uteri, unspecified (principal); D50.9 Iron deficiency anemia, unspecified

== ENCOUNTER 2024-12-16 09:40 | Outpatient (CLI) | payer OTHER ==
[2024-12-16 11:54] LABS: BASO % 1.3 % (0.1-1.2); EOS # 0.23 (0.04-0.54); EOS % 3.8 % (0.7-7.0); HEMATOCRIT 28.6 % (34.1-44.9); LYMPH # 1.63 (1.18-3.74); LYMPH % 26.8 % (19.3-53.1); MONO # 0.61 (0.24-0.82); NEUT # 3.52 (1.56-6.13); NEUT % 57.8 % (34.0-71.1); PLATELET COUNT 339 K/uL (163-369); RED BLOOD COUNT 3.96 M/uL (3.93-5.22); RED CELL DISTRIBUTION WIDTH 21.1 % (11.6-14.4)
[2024-12-16 12:03] LABS: HEMOGLOBIN 8.7 g/dL (11.2-15.7)
== END 2024-12-16 09:44 | disposition home or self-care (01) ==
LOC: LAB 09:40
DX: D50.9 Iron deficiency anemia, unspecified (principal)

== ENCOUNTER 2025-05-28 16:04 | Emergency (ER) | payer OTHER ==
[~2025-05-28] VITALS: Ht 157.5 cm; Wt 83.9 kg
[~2025-05-28 16:04] MED LIST changes: +MELOXICAM15 MG PO; +PROTONIX20 MG PO
[2025-05-28] MEDS ORDERED: 0.9 % SODIUM CHLORIDE 1,000 ML IV SCH (18:15)
[2025-05-28 18:41] LABS: BASO % 1.0 % (0.1-1.2); EOS # 0.11 (0.04-0.54); EOS % 1.6 % (0.7-7.0); LYMPH # 1.76 (1.18-3.74); LYMPH % 25.1 % (19.3-53.1); MEAN PLATELET VOLUME 11.40 fl (9.4-12.4); MONO # 0.72 (0.24-0.82); MONO % 10.3 % (4.7-12.5); NEUT # 4.34 (1.56-6.13); NEUT % 61.7 % (34.0-71.1); RED CELL DISTRIBUTION WIDTH 15.8 % (11.6-14.4)
[2025-05-28 19:06] LABS: INR 1.1
[2025-05-28 19:11] LABS: ALT/SGPT 18.0 U/L (12-78); AST/SGOT 19.0 U/L (15-37); BILIRUBIN TOTAL 0.42 mg/dL (0.3-1.2); BUN CREA RATIO 23.0 (7.0-25.0); CREATININE SERUM 0.91 mg/dL (0.55-1.02); GFR 61.29; GLOBULINA 3.5 G/DL (2.4-3.5); GLUCOSE FASTING 131.0 mg/dL (65-100); OSMOLALITY SERUM 286.0 MOSM/KG (275-295)
== END 2025-05-28 20:25 | disposition home or self-care (01) ==
LOC: ER 16:05
PROVIDERS: Student in an Organized Health Care Education/Training Program
DX: R53.1 Weakness (principal); D64.89 Other specified anemias; Z88.8 Allergy status to other drugs, medicaments and biological substances; Z85.89 Personal history of malignant neoplasm of other organs and systems

== ENCOUNTER 2025-07-16 00:44 | Emergency (ER) | payer OTHER ==
[~2025-07-16] VITALS: Ht 157.5 cm; Wt 89.8 kg
[2025-07-16] MEDS ORDERED: DEXAMETHASONE SODIUM PHOSP/PF 10 MG/ML VIAL IV STA (02:21)
[2025-07-16] MEDS ORDERED: KETOROLAC TROMETHAMINE 60 MG VIAL IM STA (02:21)
[2025-07-16] MEDS ORDERED: KETOROLAC TROMETHAMINE 60 MG VIAL IM ONE (04:53)
[2025-07-16] MEDS ORDERED: DEXAMETHASONE SODIUM PHOSPHATE 4 MG/ML VIAL ONE (04:54)
== END 2025-07-16 05:38 | disposition home or self-care (01) ==
LOC: ER 00:45
PROVIDERS: General Practice
DX: M54.2 Cervicalgia (principal); Z88.8 Allergy status to other drugs, medicaments and biological substances; I10 Essential (primary) hypertension; G43.909 Migraine, unspecified, not intractable, without status migrainosus; E03.8 Other specified hypothyroidism; M62.838 Other muscle spasm